=== PATIENT | male | born 1995 | race Caucasian/White ===

== ENCOUNTER 2018-11-10 19:37 | Emergency (ER) | payer SELFPAY ==
--- NOTE | 2018-11-10 19:56 | EDM.PDOC ---
ED HPI GENERAL MEDICAL PROBLEM - General Stated Complaint: KIDNEY PAINS- [id number] Time Seen by Provider: 11/10/18 19:55 Source of Information: Reports: Patient History Limitations: Reports: No Limitations - History of Present Illness INITIAL COMMENTS - FREE TEXT/NARRATIVE: was doing situps and develop back with nausea, gives h/o K-stones, not sure if that's it. but very uncomfortable. ambulating ok. Bilateral Flank Pain Score (Numeric/FACES): 4 - Related Data Allergies Allergy/AdvReac Type Severity Reaction Status Date / Time No Known Allergies Allergy Verified 11/10/18 20:05 Home Meds: Home Meds . [No Known Home Meds] 11/10/18 [History] ED ROS GENERAL - Review of Systems Review Of Systems: ROS reveals no pertinent complaints other than HPI. ED EXAM,LOWER BACK PAIN/INJURY - Physical Exam Exam: See Below Exam Limited By: No Limitations General Appearance: Alert, WD/WN, Mild Distress, Other (discomfort) Ears: Hearing Grossly Normal Throat/Mouth: Normal Voice, No Airway Compromise Head: Atraumatic Neck: Non-Tender, Full Range of Motion Respiratory/Chest: No Respiratory Distress Cardiovascular: Regular Rate, Rhythm GI/Abdominal: Soft, Non-Tender Back Exam: Muscle Spasm, Paraspinal Tenderness, Other (right L2-3 region without radiculitis) Neurological: Alert, Normal Mood/Affect, Normal Gait, No Motor/Sensory Deficits , Oriented x 3 Psychiatric: Normal Affect, Normal Mood Skin Exam: Warm, Dry, Normal Color Lymphatic: No Adenopathy Course - Vital Signs Last Recorded V/S: Last Vital Signs Temp 37.2 C 11/10/18 21:44 Pulse 90 11/10/18 21:44 Resp 14 11/10/18 21:44 BP 125/81 11/10/18 21:44 Pulse Ox 97 11/10/18 21:44 - Orders/Labs/Meds Labs: Laboratory Tests 11/10/18 Range/Units 19:50 Urine Color Dark yellow (YELLOW) Urine Appearance Slightly cloudy (CLEAR) Urine pH 5.5 (5.0-9.0) Ur Specific Stark >= 1.030 (1.005-1.030) Urine Protein 30 H (NEGATIVE) Urine Glucose (UA) Negative (NEGATIVE) Urine Ketones Negative (NEGATIVE) Urine Occult Blood Negative (NEGATIVE) Urine Nitrite Negative (NEGATIVE) Urine Bilirubin Negative (NEGATIVE) Urine Urobilinogen 0.2 (0.2-1.0) mg/dL Ur Leukocyte Esterase Negative (NEGATIVE) Urine RBC 0-5 /HPF Urine WBC 0-5 (0-5/HPF) /HPF Ur Epithelial Cells Moderate H (NOT SEEN) /HPF Urine Bacteria Moderate H (0-FEW/HPF) /HPF Hyaline Casts Few H (NOT SEEN) /LPF Urine Mucus Many H (NOT SEEN) /LPF Meds: Medications Discontinued Medications Generic Name Dose Route Start Last Admin Trade Name Freq PRN Reason Stop Dose Admin Ibuprofen 800 mg 11/10/18 21:51 Motrin PO 11/10/18 21:52 ONETIME ONE - Re-Assessments/Exams Free Text/Narrative Re-Assessment/Exam: 11/10/18 21:57 results discussed with pt. Departure - Departure Time of Disposition: 21:57 Disposition: Home, Self-Care 01 Condition: Good Clinical Impression: Lumbar paraspinal muscle spasm - Discharge Information Forms: ED Department Discharge Additional Instructions: 1) try ice or heat to sore areas 2) try tyelnol or motrin for discomfort 3) follow up at clinic
[2018-11-10] MEDS ORDERED: Ibuprofen 800 MG Tab PO ONE (21:51)
== END 2018-11-10 22:05 | disposition home or self-care (01) ==
LOC: DL.ED 19:37
DX: M62.830 Muscle spasm of back (principal)
CPT/HCPCS: 71046; 74176; 81001; 99284; A9270; 99283